=== PATIENT | male | born 1970 | race Caucasian/White ===

== ENCOUNTER 2017-06-25 09:44 | Outpatient (CLI) | payer OTHER ==
--- NOTE | 2017-06-25 14:17 | Diagnostic Imaging Report ---
IKE THOMPSON [facility] [address] [facility].[address] [address] Report Submission Date: Jun 25, 2017 10:17:40 AM CDT Patient Study Name: DU JONES Date: Jun 25, 2017 9:53:33 AM CDT Modality Type: CR Gender: M Description: CHEST : 66 Institution: [facility] Physician: IKE THOMPSON Examination: PA and lateral chest. History: Evaluate lung luna. Comparison exam: None provided Findings: PA lateral chest demonstrate a prominent cardiac and mediastinal silhouette. Sternotomy wires. Mild parenchymal haziness involving the right inferior hilum. No blunting of the costophrenic margins. Osseous structures are appropriate for age. Impression: Right hilar haziness: Scarring versus mild infiltrate. No effusion. Post cardiac surgical changes. Prominent cardiac silhouette. Electronically signed on Jun 25, 2017 10:17:40 AM CDT by: Jluis BROWN
== END 2017-06-25 09:45 ==
LOC: RAD 09:44
PROVIDERS: ATTEND Family Medicine
DX: J20.9 Acute bronchitis, unspecified (principal)
CPT/HCPCS: 71020

== ENCOUNTER 2017-10-17 13:38 | Outpatient (CLI) | payer OTHER ==
--- NOTE | 2017-10-19 10:40 | OP Clinic Progress Note ---
REASON FOR VISIT: This 46-year-old man has had a history of cerumen built up. Currently, it is somewhat worse on the left than on the right. I cleaned wax out of both ear canals under the microscope. 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 I cleaned this under the microscope. Again, both eardrums are normal. The patient is able to hear better after the cleaning procedure. With diagrams, I have pointed out to him the erosive nature of the cystic or cholesteatomatous ear canal changes. PLAN: This may stay quite benign. The patient has been informed and acknowledges understanding. As to whether this stays fairly benign and it does not remain actively erosive, it may need no surgical treatment. I have asked him to recheck in about 4 months for re-debridement of this pitted canal cholesteatoma. I would say there was a spicule of bone that I removed from that area. I showed it to him and he acknowledged the hard, white crusty nature of this. cc: Dr. Chandana BROWN
== END 2017-10-17 13:40 ==
LOC: ENT 13:38
PROVIDERS: ATTEND Otolaryngology
DX: H61.23 Impacted cerumen, bilateral (principal); H71.91 Unspecified cholesteatoma, right ear
CPT/HCPCS: 69210; 99213

== ENCOUNTER 2018-01-28 14:31 | Outpatient (CLI) | payer OTHER ==
[2018-01-28 15:12] LABS: BASOPHILS % 0.4 (0.0-1.5); EOSINOPHILS % 1.7 % (0.0-6.8); MEAN CORPUSCULAR HEMOGLOBIN 32.4 pg (28.0-34.0); MEAN CORPUSCULAR VOLUME 96.5 fl (80.0-100.0); MONOCYTES % 6.2 % (0.0-11.0); NEUTROPHILS # 6.5 # k/uL (1.4-7.7)
[2018-01-28 15:57] LABS: eGFR (African) > 60; eGFR (Non-African) > 60
--- NOTE | 2018-01-28 17:22 | Diagnostic Imaging Report ---
IKE THOMPSON [facility] [address] [facility] [address] [address] Report Submission Date: Jan 28, 2018 5:06:25 PM CDT Patient Study Name: DU JONES Date: Jan 28, 2018 2:40:18 PM CDT Modality Type: DX Gender: M Description: CHEST : 66 Institution: [facility] Physician: IKE THOMPSON Examination: PA and lateral chest. History: COUGH X 1 WEEK DX OF ACUTE BRONCHITIS X 1 WEEK AGO (Hx) Comparison exam: 25 June 2017 Findings: PA lateral chest demonstrate a prominent cardiac and mediastinal silhouette. Sternotomy wires. Mild parenchymal haziness involving the right inferior hilum. No blunting of the costophrenic margins. Osseous structures are appropriate for age. Impression: Continued right hilar haziness - possibly chronic. No effusion. Post cardiac surgical changes. Prominent cardiac silhouette. Electronically signed on Jan 28, 2018 5:06:25 PM CDT by: Jluis BROWN
== END 2018-01-28 14:33 ==
LOC: LAB 14:31
PROVIDERS: ATTEND Family Medicine
DX: I71.2 Thoracic aortic aneurysm, without rupture (principal); J20.9 Acute bronchitis, unspecified; I10 Essential (primary) hypertension
CPT/HCPCS: 36415; 71046; 80053; 85025

== ENCOUNTER 2018-02-06 14:29 | Outpatient (CLI) | payer OTHER ==
--- NOTE | 2018-02-07 09:50 | OP Clinic Progress Note ---
REASON FOR VISIT: Kevyn is seen in follow up of bilateral ear canal difficulties. Last time, he had a hard bony cyst cleaned out of the left ear along with cerumen. This time , the cystic area has improved. He still has a pocket or a small cystic area but it has improved over 4 months ago. The right ear has some canal skin keratosis where hard scabby skin has collected, more in the lateral ear canal. PLAN: I debrided and cleaned his ears under the microscope today and will again in about 5 months. Kevyn is pleasant but a little bit jumpy which makes thorough cleaning a little difficult. cc: Dr. Chandana BROWN
== END 2018-02-06 14:30 ==
LOC: ENT 14:29
PROVIDERS: ATTEND Otolaryngology
DX: H61.23 Impacted cerumen, bilateral (principal)
CPT/HCPCS: 69210; 99213

== ENCOUNTER 2018-07-10 13:37 | Outpatient (CLI) | payer OTHER ==
--- NOTE | 2018-07-12 14:10 | OP Clinic Progress Note ---
REASON FOR VISIT: The patient has had otitis externa and some wax and cleaning. Patient is seen for debridement and cleaning of the ears. The patient was noted to be somewhat jumpy previously. Under the microscope, I cleaned his left ear and there was a significant amount of cerumen and irritative exudates. A small amount of alcohol drops helped loosen this, as it was hard fixed. In the right ear, it was a different story. It seemed to be about the same situation with debriding and cleaning and he was somewhat jumpy but I used several small drops of alcohol but he had burning in that ear. On finishing the removal of the wax, I could see that he had a perforation in the posterior superior quadrant right up against the canal. I could see the tip of the incus. He did have burning and stinging and he had progressive nausea and was vasovagal. He was watched for half an hour. He was able to walk. He, again, had nausea and vomiting and I gave him some Zofran. He had some scabby crusted area in that upper portion of the eardrum in the past but I have not been able to truly tell whether it was a perforation or not. Exact sequence or etiology of this is still not 100% clear to me. I had some difficulty getting good clear visualization, as the patient is strong and muscular and the angulation to get into his ears is somewhat difficult. Nevertheless, re-looking with an otoscopy, there is a small posterior perforation right at the margin superiorly. Looking at it, I do not see blood. I do not see scrapes, but I still would say the exact etiology is not 100% clear in this regard. I walked the patient to his car and his sister picked him up. He has my home phone number and cell phone number. Patient has had nausea and vomiting associated with chemotherapy and a malignant melanoma that he has had on his right arm, surgeries, and a number of other health issues. He was clearly getting progressively better and ambulated on his own and was not veering particularly to 1 side or the other. PLAN: Follow up with Kevyn along the way. He was not vasovagal and did not have hypotension on leaving. Systolic was about 150 and diastolic was about 90. cc: Dr. Chandana BROWN
== END 2018-07-10 13:40 ==
LOC: OUT 13:37
PROVIDERS: ATTEND Otolaryngology
DX: H61.22 Impacted cerumen, left ear (principal)
CPT/HCPCS: 99212

== ENCOUNTER 2018-08-26 12:48 | Outpatient (CLI) | payer OTHER | END 2018-08-26 12:50 | LOC: RT 12:48 | PROVIDERS: ATTEND Family Medicine | DX: Z01.810 Encounter for preprocedural cardiovascular examination (principal) ==

== ENCOUNTER 2019-09-03 17:25 | Outpatient (CLI) | payer OTHER ==
[2019-09-03 17:53] LABS: NEUTROPHILS # 4.6 # k/uL (1.4-7.7)
[2019-09-03 17:55] LABS: SEGMENTED NEUTROPHILS % 58 % (39-79)
[2019-09-03 18:11] LABS: eGFR (Non-African) > 60
== END 2019-09-03 17:30 ==
LOC: LABRHC 17:25
PROVIDERS: ATTEND Family Medicine
DX: I10 Essential (primary) hypertension (principal); R63.5 Abnormal weight gain
CPT/HCPCS: 80053; 84443; 85025

== ENCOUNTER 2019-09-10 13:21 | Outpatient (CLI) | payer OTHER | END 2019-09-10 13:35 | LOC: RAD 13:21 | PROVIDERS: ATTEND Family Medicine | DX: R10.11 Right upper quadrant pain (principal) ==